=== PATIENT | female | born 1975 | race Caucasian/White ===

== ENCOUNTER 2016-10-25 06:20 | Day surgery (SDC) | payer OTHER ==
[~2016-10-25] VITALS: Ht 154.9 cm; Wt 72.3 kg
--- NOTE | 2016-10-30 07:16 | OR ---
ADMIT: 10/25/2016 RM/LOC: [facility] MR#: [id number] [id number] [place], [place] [address] KARISSA KAPSER [address] [place] [address] Operative/Delivery Room Report SEX: F AGE: 41 : 1975 SURGERY DATE: 10/25/2016 SURGEON: Esau Yuan MD PREOPERATIVE DIAGNOSIS: Herniated nucleus pulposus with radiculopathy on the left at lumbar 4-5. POSTOPERATIVE DIAGNOSIS: Herniated nucleus pulposus with radiculopathy on the left at lumbar 4-5. PROCEDURE: Left-sided minimally invasive microlumbar discectomy with intraoperative microscopy with intraoperative microsurgical dissection technique, also with intraoperative fluoroscopy with physician interpretation of film. DESCRIPTION OF PROCEDURE: After gaining informed consent, the patient was taken to the operative theater, placed under general endotracheal anesthesia in supine position. A time-out was utilized to ascertain the correct site and side of surgery as well as other pertinent patient historical information. Counts were obtained at the beginning and end of the case with no change betwixt the two. Antibiotics were given within 1 hour of incision. The fluoroscope was brought into the field and the left lumbar 4-5 level was delineated. Stab incision was fashioned and then this was dilated down with the tubular retractor system for the 18 mm tube. Once this was done and acceptably placed fluoroscopically, the microscope was brought in the field and the rest of the case was done with microsurgical dissection technique. The lamina was drilled off in the hemilaminectomy at lumbar 4-5. Ligamentum flavum was resected and tense dura was encountered. This was very cautiously medialized and ligamentum flavum with palpable disk beneath it was incised, some large pieces of herniated nucleus pulses were then resected. There was no further compression of the thecal sac. Attention was turned to closure. ADMIT: 10/25/2016 RM/LOC: [facility] MR#: [id number] [address] [id number] KARISSA KASPER [address] [place] [address] Operative/Delivery Room Report SEX: F AGE: 41 : 1975 Pristine hemostasis was obtained. A 15 mL of 0.25% Marcaine was placed in the paraspinous musculature on each side and then the wound was closed with simple, inverted, interrupted 2-0 Vicryl in the hypodermic tissue and subcuticular 3-0 Stratafix on the skin with Steri-Strips over that. COMPLICATIONS: None. ESTIMATED BLOOD LOSS: Charted. SPECIMEN: Disk. DISPOSITION: Extubated and taken to postanesthesia care unit for discharge. Esau Yuan MD/ jhonny JOB #: [id number] CC: Esau Yuan, Attending Physician FAMILY PHYSICIAN, Family Physician
== END 2016-10-25 13:45 | disposition home or self-care (01) ==
LOC: SSS 06:20
PROC: 0SB20ZZ Excision of Lumbar Vertebral Disc, Open Approach (ICD-10-PCS; principal; 2016-10-25)
PROC: 01NB0ZZ Release Lumbar Nerve, Open Approach (ICD-10-PCS; principal; 2016-10-25)
DX: M51.16 Intervertebral disc disorders with radiculopathy, lumbar region (principal); M48.06 Spinal stenosis, lumbar region; Z98.890 Other specified postprocedural states